=== PATIENT | male | born 1970 | race Caucasian/White ===

== ENCOUNTER 2022-05-27 07:53 | Outpatient (CLI) | payer BC, SELFPAY | END 2022-05-27 07:54 | disposition home or self-care (01) | LOC: ANHAUDASC 07:54 | PROVIDERS: PCP Family Medicine; Visit Provider Otolaryngology | DX: H69.82 Other specified disorders of Eustachian tube, left ear (principal); H91.92 Unspecified hearing loss, left ear | CPT/HCPCS: 92557; 92567 ==